=== PATIENT | male | born 1935 | race Caucasian/White ===

== ENCOUNTER 2017-06-15 08:02 | Emergency (ER) | payer MEDICARE, BC | END 2017-06-15 08:30 | disposition home or self-care (01) | LOC: SCSER 08:02 | DX: J32.9 Chronic sinusitis, unspecified (principal); H10.9 Unspecified conjunctivitis; I48.91 Unspecified atrial fibrillation; N40.0 Benign prostatic hyperplasia without lower urinary tract symptoms; E78.5 Hyperlipidemia, unspecified; Z87.891 Personal history of nicotine dependence; Z79.899 Other long term (current) drug therapy; Z79.82 Long term (current) use of aspirin | CPT/HCPCS: 99283 ==

== ENCOUNTER 2017-07-09 16:50 | Outpatient (CLI) | payer MEDICARE, BC ==
--- NOTE | 2017-07-09 20:04 | RAD ---
TWO VIEWS CHEST: 07/09/17 PROVIDED CLINICAL HISTORY: Bronchitis. FINDINGS: Comparison is made with the study dated 06/05/07. The cardiomediastinal silhouette is unchanged in appearance. Hiatal hernia is possibly present versus tortuosity of the thoracic aorta. Lungs appear free of significant opacity. No pleural fluid or pneu mothorax is evident. Degenerative changes are seen involving the thoracic spine. IMPRESSION: Cardiomegaly without evidence for an acute cardiopulmonary process. POS: [facility]
== END 2017-07-09 16:51 | disposition home or self-care (01) ==
LOC: SCSRAD 16:50
PROVIDERS: ATTEND Family Medicine
DX: J40 Bronchitis, not specified as acute or chronic (principal); I51.7 Cardiomegaly
CPT/HCPCS: 71020

== ENCOUNTER 2017-11-08 21:02 | Inpatient (IN) | payer MEDICARE, BC ==
[2017-11-08 21:53] LABS: #Eosinphils 0.1 thou/uL (0.0-0.7); #Lymphocytes 1.3 thou/uL (1.20-3.40); #Neutrophils 6.7 thou/uL (1.40-6.50); %Basophils 0.5 % (0.0-1.0); %Eosinophils 1.3 % (0.0-10.0); %Lymphocytes 14.5 % (21.0-51.0); %Monocytes 10.7 % (0.0-10.0); %Neutrophils 73.1 % (42.0-75.0); Hemoglobin 12.5 g/dL (14.0-18.0); Mean Corpuscular HGB CONC 32.3 g/dL (32.0-36.0); Mean Corpuscular Hemoglobin 33.2 pg (27.0-31.0); Platelet Count 264 thou/uL (130-400); RBC Distribution Width 13.3 % (11.5-14.5); Red Blood Cell (RBC) Count 3.76 mill/uL (4.70-6.10); White Blood Cell (WBC) Count 9.2 thou/uL (4.8-10.8)
[2017-11-08 21:58] LABS: Base Excess-Venous 6.6 mmol/L (0 (+/- 2.5)); Bicarbonate (HCO3v) 30.4 mmol/L (1.0-85.0); CO2 Tension (PvCO2) 39.6 mmHg (41.0-51.0); Calcium, Ionized 1.05 mmol/L (1.12-1.32); Hemoglobin - Calc 13.8 g/dL (12.0-18.0); O2 Tension (PvO2) 67.3 mmHg (35.0-45.0); Potassium 3.1 mmol/L (3.4-4.7); T. Carbon Dioxide 31.6 mmol/L (1.0-85.0); pH (Venous) 7.494 (7.35-7.45); vO2 Saturation-calc 94.6 % (94-98)
[2017-11-08] MEDS ORDERED: Furosemide 40 MG/4 ML VIAL ONE (22:04)
[2017-11-08] MEDS ORDERED: cefTRIAXone\\ROCEPHIN 2 GM VIAL ONE (22:04)
[2017-11-08] MEDS ORDERED: Sodium Chloride 0.9% 100 ML ONE (22:05)
[2017-11-08 22:12] LABS: ALT (SGPT) 38 U/L (8-55); AST (SGOT) 35 U/L (5-34); Albumin 3.4 g/dL (3.4-4.8); Alkaline Phosphatase 58 U/L (40-150); Anion Gap 13 mmol/L (10-20); BUN (Urea Nitrogen) 21 mg/dL (8.4-25.7); Bilirubin, Total 0.8 mg/dL (0.2-1.2); CK (CPK) 124 U/L (30-200); Calc. Creatinine Clearance 0 mL/min (70-130); Calcium 8.8 mg/dL (7.8-10.44); Carbon Dioxide 29 mmol/L (23-31); Chloride 101 mmol/L (98-107); Estimated GFR-MDRD 79; Globulin 2.5 g/dL (2.4-3.5); Glucose 129 mg/dL (83-110); Potassium 3.2 mmol/L (3.5-5.1); Protein, Total 5.9 g/dL (5.8-8.1); Sodium 140 mmol/L (136-145)
[2017-11-08 22:15] LABS: CKMB 0.8 ng/mL (0-6.6); Troponin I 0.036 ng/mL (< 0.028)
--- NOTE | 2017-11-08 22:51 | RAD ---
PORTABLE AP CHEST X-RAY 11/08/17 HISTORY: Dyspnea, shortness of breath. COMPARISON: 07/09/17. FINDINGS: There are increased interstitial and alveolar opacities in the perihilar regions bilaterally which ma y be related to infectious process and atypical pneumonia is a possibility. Asymmetric pulmonary truman a is also a possibility. The cardiac silhouette is magnified by projection but stable in size. Pulmon rajendra vasculature is within normal limits. Degenerative changes are seen in the spine. Vascular calcifi cations seen in the thoracic aorta. IMPRESSION: Bilateral perihilar interstitial and alveolar opacities which may be related to either asymmetric pul monary edema or infectious process. Atypical pneumonia could not be excluded. Followup to resolution is recommended. POS: [facility]
[2017-11-08 23:15] LABS: Bilirubin Negative (Negative); Blood, Urine Negative (Negative); Clarity CLEAR (Clear); Glucose, Urine (Dipstick) Negative (Negative); Leukocyte Negative (Negative); Nitrite Negative (Negative); Protein, Urine (Dipstick) Negative (Neg-Trace); Specific Gravity, Urine 1.008 (1.002-1.036); pH, Urine 7.5 (5.0-9.0)
[2017-11-08] MEDS ORDERED: Fentanyl 100 MCG/2 ML VIAL SLOW IVP PRN (23:52)
[2017-11-08] MEDS ORDERED: Vancomycin HCl 1 GM in Premix Bag 1 BAG IVPB SCH (23:59)
[2017-11-09] VITALS: BMI 32.8
[2017-11-09 01:32] LABS: CKMB 0.7 ng/mL (0-6.6); Troponin I 0.032 ng/mL (< 0.028)
[2017-11-09 04:34] LABS: #Basophils 0.1 thou/uL (0.0-0.2); #Eosinphils 0.1 thou/uL (0.0-0.7); #Lymphocytes 2.4 thou/uL (1.20-3.40); #Monocytes 1.1 thou/uL (0.11-0.59); #Neutrophils 6.1 thou/uL (1.40-6.50); %Basophils 0.7 % (0.0-1.0); %Eosinophils 1.1 % (0.0-10.0); %Lymphocytes 24.1 % (21.0-51.0); %Monocytes 11.7 % (0.0-10.0); %Neutrophils 62.5 % (42.0-75.0); Hemoglobin 11.9 g/dL (14.0-18.0); Mean Corpuscular HGB CONC 32.3 g/dL (32.0-36.0); Mean Corpuscular Hemoglobin 33.1 pg (27.0-31.0); Platelet Count 246 thou/uL (130-400); RBC Distribution Width 13.3 % (11.5-14.5); White Blood Cell (WBC) Count 9.8 thou/uL (4.8-10.8)
[2017-11-09 04:38] LABS: Anion Gap 9 mmol/L (10-20); BUN (Urea Nitrogen) 18 mg/dL (8.4-25.7); Calc. Creatinine Clearance 74 mL/min (70-130); Calcium 8.9 mg/dL (7.8-10.44); Carbon Dioxide 36 mmol/L (23-31); Chloride 99 mmol/L (98-107); Estimated GFR-MDRD 67; Glucose 122 mg/dL (83-110); Potassium 3.3 mmol/L (3.5-5.1); Sodium 141 mmol/L (136-145)
[2017-11-09 04:43] LABS: Troponin I 0.042 ng/mL (< 0.028)
[2017-11-09] MEDS ORDERED: Amiodarone 200 MG TAB PO SCH (09:00)
--- NOTE | 2017-11-09 09:57 | HP ---
HISTORY OF PRESENT ILLNESS: This is an 82-year-old white male with history of hypertension, hyperlip idemia, and arrhythmia who presents with shortness of breath. Patient states years ago, he had an ep isode of what he describes as congestive heart failure, treated with IV Lasix. He has been a patient of Dr. Kraus as well as Dr. Hill Franklin. He has a history of a cardiac arrhythmia. He was do ing well until approximately 4 weeks ago, he started developing some shortness of breath. He was hop ing it would resolve on its own. His normal weight is approximately 190, and over the past several w eeks, he gained up to 215 pounds. He was becoming increasing shortness of breath and he was in [facility] on Saturday 3 days ago and went to the emergency room and was treated with Lasix and potassium and sent home. He continued to have increasing shortness of breath and they decided to come home and he immediately came to the emergency room where he was in severe respiratory distress. He was immediat sammy placed on BiPAP and given 80 mg of Lasix IV. Following this, his breathing improved. He was on BiPAP for a very short period of time. This morning, he is feeling much better. He is breathing eas ier. He is walking in the hallways. PAST MEDICAL HISTORY: Includes hearing loss, hypertension, hyperlipidemia, irregular heartbeat, slee p apnea, and glaucoma. PAST SURGICAL HISTORY: Include appendectomy and cataract. In 07/06, he had lumbar laminectomy by Dr Meliton Longoria. FAMILY HISTORY: Father with colon cancer. Mother at 94 with heart disease. Sibling with lung cancer. SOCIAL HISTORY: He drinks occasional scotch. He is retired, , has 3 sons, lives with his wif e. He would like to play golf 4 times per week. He does also enjoy traveling. MEDICATIONS: Amlodipine 5 mg daily, hydrochlorothiazide 25 daily, amiodarone 200 mg daily, glaucoma eyedrops, Lipitor 80 mg daily, Zetia 10 mg daily, multivitamin daily, aspirin 81 mg daily, Avodart 0. 5 mg daily, albuterol refill, albuterol HFA p.r.n., Mobic p.r.n., Singulair 10 daily. ALLERGIES: OMEPRAZOLE causes hypotension and bradycardia. REVIEW OF SYSTEMS: As above. PHYSICAL EXAMINATION: VITAL SIGNS: Temperature on admission was 99.7, temperature now 99.3, pulse 53, respiration 20, puls e oximetry 94% on 2 liters, and blood pressure 134/58. GENERAL: No acute distress at this time. HEENT: Clear. HEART: Regular rate and rhythm with 2/6 systolic ejection murmur. LUNGS: Clear. ABDOMEN: Soft. EXTREMITIES: With 1 to 2+ edema. LABORATORY: Sodium 141, potassium 3.3, chloride 99, CO2 of 36, creatinine 1.05, BUN 18, glucose 122. Troponin I 0.032, 0.042. BNP 620. Chest x-ray with bilateral perihilar interstitial and alveolar opacities consistent with pulmonary edema, rule out infectious process, atypical pneumonia could not be ruled out. ASSESSMENT: 1. Acute respiratory distress with hypoxia. 2. Flash pulmonary edema. 3. Acute on chronic congestive heart failure, rule out non-ST elevation myocardial infarction. 4. Early bilateral pneumonia. Cultures pending. 5. Hypertension. 6. History of arrhythmia. 7. Sleep apnea. 8. Glaucoma. 9. History of renal artery stenosis. PLAN: 1. Admit. 2. Diurese with Lasix. 3. Vancomycin. Awaiting cultures. 4. Echocardiogram. 5. Consult Dr. Major. 6. Continue to follow I's and O's. 7. Patient is doing very well at this time. Anxious possibly to go home.
[2017-11-09] MEDS: Amlodipine 5 MG TAB PO SCH (10:48)
[2017-11-09] MEDS: Multivitamin W/ Minerals 1 TAB PO SCH (10:48)
[2017-11-09] MEDS: Gabapentin 300 MG CAP PO SCH ×3 (10:49→20:31)
[2017-11-09] MEDS: Fluticasone Propionate Nasal Spray 16 gm Bottle NASAL SCH (10:52)
[2017-11-09] MEDS: Hydrochlorothiazide 25 MG TAB PO SCH (10:52)
[2017-11-09] MEDS: Meloxicam 15 MG TAB PO SCH (10:53)
[2017-11-09] MEDS: Furosemide 40 MG/4 ML VIAL SLOW IVP SCH (13:07)
--- NOTE | 2017-11-09 13:19 | CON ---
DATE OF CONSULTATION: 11/09/2017 CONSULTING PHYSICIAN[place] [facility] [place] REASON FOR CONSULTATION: Acute respiratory failure related to congestive heart failure. HISTORY OF PRESENT ILLNESS: Mr. Cordero is a pleasant 82-year-old male who has seen Dr. Mosqueda in the [facility] [place] for management of his sleep apnea. He came in last night with increasing edema and shortness of breath. 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 Last ni ght, he was briefly on BiPAP. He diuresed about 2 liters and feels better this morning. PAST MEDICAL HISTORY: 1. Congestive heart failure. 2. Hypertension. 3. Hyperlipidemia. 4. Sleep apnea. 5. Paroxysmal atrial fibrillation. PAST SURGICAL HISTORY: 1. Appendectomy. 2. Cataract surgeries. 3. Lumbar laminectomy. FAMILY MEDICAL HISTORY: Remarkable for colon cancer, heart disease, and lung cancer. SOCIAL HISTORY: Occasionally drinks alcohol, does not smoke. MEDICATIONS: Amlodipine, hydrochlorothiazide, amiodarone, Lipitor, Zetia, multivitamin, aspirin, [place] dart, albuterol, Mobic, and Singulair. ALLERGIES: OMEPRAZOLE. REVIEW OF SYSTEMS: Twelve point review of systems otherwise negative. PHYSICAL EXAMINATION: VITAL SIGNS: Temperature 98.3, pulse 56, respirations 18, and O2 sat 91%. GENERAL: He is awake, alert, and in no distress. HEENT: Unremarkable. NECK: No adenopathy or JVD. LUNGS: Clear without wheezing or rhonchi at this time. CARDIOVASCULAR: S1, S2 regular. ABDOMEN: Soft, nontender. EXTREMITIES: No clubbing, cyanosis. Has trace ankle and pedal edema. LABORATORY DATA: White blood cell count 9.8, hematocrit 37, platelet count 246. Sodium 141, potassi um 3.3, chloride 99, CO2 of 36, BUN 18, creatinine 1.1, glucose 122. His chest x-ray showed pulmonar y edema last night. BNP level was 620. ASSESSMENT: 1. Acute respiratory failure related to congestive heart failure. 2. Sleep apnea, which is stable. 3. History of other medical problems listed above. PLAN: The patient can be transferred out to telemetry because he no longer needs BiPAP continuously. He will bring his CPAP from home to use at night for treatment of GERI. I reviewed the orders in e chart, agree with the diuretics and heart failure management. I doubt this is pneumonia and I woul d advocate discontinuing the antibiotics tomorrow if he remains stable. Seventy minutes of time was spent performing consultation at this time, greater than 50% spent either with the patient and/or on the patient's unit.
[2017-11-09] MEDS ORDERED: Potassium Chloride 20 MEQ TAB PO SCH (18:30)
[2017-11-09] MEDS: Montelukast Sodium 10 mg Tablet PO SCH (20:30)
[2017-11-09] MEDS: Aspirin 81 mg Enteric Coated Tablet PO SCH (20:30)
[2017-11-09] MEDS: Atorvastatin Calcium 40 MG TAB PO SCH (20:31)
[2017-11-09] MEDS: Dutasteride 0.5 MG CAP PO SCH (20:31)
[2017-11-09] MEDS: Ezetimibe 10 MG TAB PO SCH (20:31)
--- NOTE | 2017-11-09 20:48 | CON ---
DATE OF CONSULTATION: 11/09/2017 CARDIOLOGY CONSULTATION REASON FOR CONSULTATION: Congestive heart failure. PRIMARY STATE ASSESSED PROPERTIES DIRECTOR: Dr. Ganesh Kraus. HISTORY OF PRESENT ILLNESS: Mr. Cordero is a very pleasant 82-year-old gentleman. He has history of d iastolic congestive heart failure in the past as well as atrial fibrillation. The patient was visiti inna up in [place] recently became increasingly short of breath. He had to go to the emergency room, received some diuretics, it did not have a really good response. He said since then he has gotten pr ogressively more short of breath. Finally, he came to the emergency room yesterday, he has got diure tic and is feeling better. No chest pain or pressure. PAST MEDICAL HISTORY: 1. Diastolic heart failure, chronic. 2. Hypertension. 3. Hyperlipidemia. 4. Paroxysmal atrial fibrillation. 5. First-degree AV block. Long first-degree AV block noted in 12/2016 on EKG. PAST SURGICAL HISTORY: 1. Appendectomy. 2. Cataract surgery. 2. Previous cardioversion. 3. Previous Watchman placement due to GI bleeding and need for anticoagulation. FAMILY HISTORY: Colon cancer, heart disease, and lung cancer. SOCIAL HISTORY: Occasionally drinks alcohol. No smoking. MEDICATIONS: 1. Amlodipine. 2. Hydrochlorothiazide. 3. Amiodarone 200 mg a day. 4. Zetia. 5. Multivitamin. 6. Avodart. 7. Albuterol. ALLERGIES: OMEPRAZOLE. REVIEW OF SYSTEMS: Constitutional: No significant weight gain or loss. Vision: No changes. Heari ng: No changes. Pulmonary: Shortness of breath. Cardiac: Shortness of breath, no syncope. Gastr ointestinal: No nausea, vomiting, diarrhea. Skin: No rashes. Neurologic: No unilateral weakness or numbness. Psychiatric: No unusual depression or anxiety. Hematologic: No unusual bruising. Ge nitourinary: No burning with urination. PHYSICAL EXAMINATION: GENERAL: Delightful elderly gentleman resting comfortably in no distress. VITAL SIGNS: Blood pressure 147/67, pulse 55 with slight irregularity. NECK: Neck veins are normal. Carotid normal upstrokes. LUNGS: Clear anteriorly and laterally. CARDIOVASCULAR: Mildly irregular beats, bradycardic. No S3, no murmur heard. ABDOMEN: Soft, nontender. He is obese. EXTREMITIES: No clubbing or cyanosis. There is some moderate edema. LABORATORY DATA AND X-RAY FINDINGS: EKG shows atrial fibrillation with what looks like a junctional rhythm and occasionally conducted rhythm through the AV node. He is bradycardic. Echocardiogram, technically suboptimal study, but the ejection fraction estimated at 50%-55%. There is aortic stenosis, but looks likely [id number]. ASSESSMENT: 1. Congestive heart failure, diastolic, acute on chronic. 2. Atrial fibrillation, recurrent. 3. History of first-degree AV block. 4. Hypokalemic now. PLAN: 1. Stop amiodarone. 2. Continue diuretics. 3. Replete potassium. 4. Further care dictated by hospital course. Heart rate would likely gradually increase well off e amiodarone, but that will certainly take some time with a long half-life of this medicine.
[2017-11-09] MEDS ORDERED: TIMOLOL L EYE SCH (21:00)
[2017-11-09] MEDS ORDERED: DORZOLAMIDE L EYE SCH (21:00)
[2017-11-10] MEDS: Furosemide 40 MG/4 ML VIAL SLOW IVP SCH ×2 (05:45→14:27)
[2017-11-10 08:02] LABS: Anion Gap 12 mmol/L (10-20); BUN (Urea Nitrogen) 16 mg/dL (8.4-25.7); Calc. Creatinine Clearance 80 mL/min (70-130); Calcium 8.7 mg/dL (7.8-10.44); Carbon Dioxide 32 mmol/L (23-31); Chloride 101 mmol/L (98-107); Estimated GFR-MDRD 78; Glucose 94 mg/dL (83-110); Potassium 3.4 mmol/L (3.5-5.1); Sodium 142 mmol/L (136-145)
--- NOTE | 2017-11-10 08:12 | PRG ---
DATE OF SERVICE: 11/10/2017 SUBJECTIVE: The patient is feeling much better this morning. He is less short of breath. No compla ints of chest pain. Continues to diurese. OBJECTIVE: VITAL SIGNS: Temperature 98.2, pulse 60, respiration 20, pulse ox 94, blood pressure 122/62. HEART: Irregularly, irregular. LUNGS: Clear. ABDOMEN: Soft. EXTREMITIES: With no edema. LABORATORY DATA: Labs pending. BMP pending. ASSESSMENT: 1. Acute on chronic diastolic congestive heart failure. 2. Recurrent atrial fibrillation. 3. History of a first degree AV block. 4. Hypokalemia. 5. Acute respiratory distress with hypoxia. 6. Hypertension. 7. Sleep apnea. 8. History of renal artery stenosis. PLAN: 1. Continue diuresis. This morning, has another 1500 mL output. Lasix was just given. 2. Discontinue antibiotics. 3. Patient concerned about stopping the amiodarone. He has been on it for several years. 4. Echocardiogram pending. 5. Continue to follow.
--- NOTE | 2017-11-10 08:28 | PDOC.CTH ---
<Vivian Houser - Last Filed: 11/10/17 12:46> Cardiology Progress Note - Subjective Awake, sitting up in chair at bedside. No overnight events. Denies complaints of chest pain, continues to experience shortness of breath with minimal exertion , currently without oxygen. States he feels "a little better". - ROS shortness of breath - Objective Vital Signs Temp Pulse Resp BP BP Pulse Ox 11/10/17 07:25 99.0 F 63 17 152/72 H 91 L 11/10/17 04:00 98.2 F 60 20 122/62 94 L 11/09/17 20:25 98.6 F 55 L 16 132/65 92 L Weight 208 lb 1 oz 11/09/17 11/10/17 11/11/17 06:59 06:59 06:59 Intake Total 320 440 Output Total 1850 1600 Balance -1530 -1160 - Physical Examination General/Neuro: alert & oriented x3, NAD Neck: no JVD present Lungs: unlabored respirations, other: (Post BLL diminished, scattered rhonchi, clear with cough) Heart: other: (Irregularly irregular, no S3, no murmur auscultated) Abdomen: NT/ND, soft, other: (obese) Extremities: + edema B (moderate edema to BLE, less tight this am) - Telemetry Telemetry Rhythm: AFib - Labs Result Diagrams: 11/09/17 04:02 11/10/17 05:14 Troponin/CKMB CK-MB (CK-2) 0.7 ng/mL (0-6.6) 11/09/17 00:58 Troponin I 0.042 ng/mL (< 0.028) H 11/09/17 04:02 - Assessment/Plan 1.Acute on chronic diastolic HF-echo yesterday revealed EF 50%-55%. BNP decreasing, good response to IV diuresis. 2. Hypokalemia-improving, K+ 3.4 this am, continue to replace 3. AFib, persistent-rate improving off amiodarone, hx:watchman, no need for OACs , prior cardioversion 4.HTN-adequately controlled on current regimen 5.Hypercholesterolemia-continue statin, ezetimibe 6.Elevated trops-likely 2/2 demand ischemia, chest pain free <Sha Major - Last Filed: 11/10/17 14:28> Cardiology Progress Note - Objective Vital Signs Temp Pulse Pulse Pulse Resp BP BP 11/10/17 13:21 98.1 F 64 16 11/10/17 11:45 54 L 55 L 161/74 H 11/10/17 09:22 63 157/72 H 11/10/17 08:00 99.0 F 63 16 11/10/17 07:25 99.0 F 63 17 11/10/17 04:00 98.2 F 60 20 BP BP BP Pulse Ox Pulse Ox Pulse Ox 11/10/17 13:21 138/65 92 L 11/10/17 11:45 129/61 90 L 94 L 11/10/17 09:22 11/10/17 08:00 91 L 11/10/17 07:25 152/72 H 91 L 11/10/17 04:00 122/62 94 L Weight 208 lb 1 oz 11/09/17 11/10/17 11/11/17 06:59 06:59 06:59 Intake Total 320 440 Output Total 1850 1600 Balance -1530 -1160 - Labs Result Diagrams: 11/09/17 04:02 11/10/17 05:14 Troponin/CKMB CK-MB (CK-2) 0.7 ng/mL (0-6.6) 11/09/17 00:58 Troponin I 0.042 ng/mL (< 0.028) H 11/09/17 04:02 Attending Addendum - Attending Addendum Date/Time: 11/10/17 [id number] I personally evaluated the patient and discussed the management with Vivian Houser NP I agree with the History, Examination, Assessment and Plan documented above with any addition or exceptions noted below.
[2017-11-10] MEDS: Calcium Carbonate 500 MG TAB PO SCH (09:21)
[2017-11-10] MEDS: Meloxicam 15 MG TAB PO SCH (09:22)
[2017-11-10] MEDS: Fluticasone Propionate Nasal Spray 16 gm Bottle NASAL SCH (09:22)
[2017-11-10] MEDS: Amlodipine 5 MG TAB PO SCH (09:22)
[2017-11-10] MEDS: Hydrochlorothiazide 25 MG TAB PO SCH (09:22)
[2017-11-10] MEDS: Gabapentin 300 MG CAP PO SCH ×3 (09:22→20:59)
[2017-11-10] MEDS: Multivitamin W/ Minerals 1 TAB PO SCH (09:23)
--- NOTE | 2017-11-10 12:29 | RAD ---
CHEST 2 VIEWS: Date: 11/10/17 HISTORY: CHF. COMPARISON: Radiograph from 11/08/17. FINDINGS: Patchy perihilar air space opacities are similar to slightly improving. No pneumothorax. Small to moderate effusions. There is upper lumbar spine compression deformities. Heart size is enlar ged. IMPRESSION: 1. Moderate interval improvement of the perihilar air space opacities may reflect edema. Continued f ollow-up recommended. 2. Cardiomegaly with small to moderate effusions. POS: [facility]
--- NOTE | 2017-11-10 15:57 | PRG ---
DATE OF SERVICE: 11/10/2017 SUBJECTIVE: Mr. Cordero is awake and alert. He has no complaints. PHYSICAL EXAMINATION: VITAL SIGNS: Temperature 98.0, pulse 60, blood pressure 157/72, O2 sat about 94% on room air. HEENT: Unremarkable. NECK: No JVD. LUNGS: Clear without wheezing or rhonchi. CARDIAC: S1 and S2 regular. ABDOMEN: Soft. EXTREMITIES: He has 2+ edema in his ankles. IMAGING DATA: His chest x-ray demonstrates bilateral perihilar edema. ASSESSMENT: 1. Congestive heart failure - probably primary diastolic dysfunction. 2. Obstructive sleep apnea. PLAN: Continue diuresis. In all likelihood, he can be discharged soon. Dr. Mosqueda will assume care tomorrow.
[2017-11-10] MEDS: Montelukast Sodium 10 mg Tablet PO SCH (20:58)
[2017-11-10] MEDS: Ezetimibe 10 MG TAB PO SCH (20:58)
[2017-11-10] MEDS: Atorvastatin Calcium 40 MG TAB PO SCH (20:58)
[2017-11-10] MEDS: Aspirin 81 mg Enteric Coated Tablet PO SCH (20:59)
[2017-11-10] MEDS: Dutasteride 0.5 MG CAP PO SCH (20:59)
[2017-11-11] MEDS: Furosemide 40 MG/4 ML VIAL SLOW IVP SCH (05:49)
[2017-11-11 07:41] VITALS: BP 128/69; TEMP 98.2
--- NOTE | 2017-11-11 08:12 | PRG ---
DATE OF SERVICE: 11/11/2017 Mr. Cordero is doing well. He is ready to go home. He is having no further shortness of breath. He h as diuresed approximately 10 pounds of fluid. PHYSICAL EXAMINATION: VITAL SIGNS: Temperature 98.5, pulse 52, BP 130/63. LUNGS: Clear. HEART: Reveals no murmur, appears to be regular rate and rhythm. LABORATORY: Sodium 142, potassium 3.4, chloride 101, CO2 32. IMPRESSION: 1. Exacerbation of congestive heart failure. 2. History of atrial fibrillation, now off amiodarone. PLAN: I believe the patient can be safely discharged today. Further cardiac recommendations will be made by Dr. Kraus. He can follow up with myself and Dr. Kraus in 1 week.
--- NOTE | 2017-11-11 08:20 | PRG ---
DATE OF SERVICE: 11/11/2017 Mr. Cordero is in atrial fibrillation today. I have checked his monitor report. He is stable to go home. I will leave the decision to restart am iodarone versus starting other medications per Cardiology who will be following him. I will see him back in 1 week.
--- NOTE | 2017-11-11 09:33 | PRG ---
DATE OF SERVICE: 11/11/2017 SUBJECTIVE: Mr. Cordero is doing much better today. Much less shortness of breath. He states after r eceiving IV Lasix while in the emergency room, his symptoms markedly improved. PHYSICAL EXAMINATION: VITAL SIGNS: Blood pressure 120/69, pulse 50, temperature 98.2. LUNGS: Clear to auscultation. HEART: Regular rate and rhythm. ABDOMEN: Soft, nontender, nondistended. EXTREMITIES: No edema. IMPRESSION: 1. Acute diastolic heart failure. 2. Atrial fibrillation. 3. Coronary artery disease. RECOMMENDATIONS: Mr. Cordero is currently doing well. His blood pressure and heart rate are stable. His symptoms have markedly improved. We will stop his amiodarone. Continue p.o. Lasix and potassium at home. Plan is to follow with Mr. Cordero in 1 week.
[2017-11-11] MEDS: Multivitamin W/ Minerals 1 TAB PO SCH (09:47)
[2017-11-11] MEDS: Meloxicam 15 MG TAB PO SCH (09:47)
[2017-11-11] MEDS: Hydrochlorothiazide 25 MG TAB PO SCH (09:47)
[2017-11-11] MEDS: Calcium Carbonate 500 MG TAB PO SCH (09:48)
[2017-11-11] MEDS: Fluticasone Propionate Nasal Spray 16 gm Bottle NASAL SCH (09:48)
[2017-11-11] MEDS: Amlodipine 5 MG TAB PO SCH (09:48)
[2017-11-11] MEDS: Gabapentin 300 MG CAP PO SCH (09:48)
== END 2017-11-11 10:30 | disposition home or self-care (01) | DRG 291 ==
LOC: ERS 21:02 → IMCU/EMU 22:21 → 2NO 11-09 15:19
PROVIDERS: ADMIT Family Medicine; ATTEND Family Medicine
DX: I11.0 Hypertensive heart disease with heart failure (principal); J96.01 Acute respiratory failure with hypoxia; J18.9 Pneumonia, unspecified organism; E78.5 Hyperlipidemia, unspecified; I10 Essential (primary) hypertension; H91.90 Unspecified hearing loss, unspecified ear; H40.9 Unspecified glaucoma; I50.33 Acute on chronic diastolic (congestive) heart failure; I48.0 Paroxysmal atrial fibrillation; E87.6 Hypokalemia; E78.00 Pure hypercholesterolemia, unspecified; I70.1 Atherosclerosis of renal artery; G47.33 Obstructive sleep apnea (adult) (pediatric); I25.10 Atherosclerotic heart disease of native coronary artery without angina pectoris
CPT/HCPCS: 36415; 71045; 71046; 80048; 80053; 81003; 82330; 82553; 82803; 83605; 83880; 84484; 85025; 87040; 87086; 93005; 93306; 93798; 94660; 96365; 96375; A4216; J0696; J1940; J7050

== ENCOUNTER 2018-02-25 17:10 | Outpatient (CLI) | payer MEDICARE, BC ==
--- NOTE | 2018-02-25 18:11 | RAD ---
THREE VIEWS LEFT KNEE: 02/25/18 INDICATION: Fall in a parking lot landing on left knee three weeks ago with persistent left knee pain. FINDINGS: There is moderate degenerative arthrosis of the left knee. No definite acute fracture or subluxation is evident. There is soft tissue swelling overlying the anterior aspect of the left knee. There are v ascular calcifications seen within posterior soft tissues. IMPRESSION: 1. Moderate osteoarthrosis of the left knee. 2. Soft tissue swelling of the anterior left knee. POS: [facility]
== END 2018-02-25 17:11 | disposition home or self-care (01) ==
LOC: SCSRAD 17:10
PROVIDERS: ATTEND Family Medicine
DX: M25.562 Pain in left knee (principal); M17.12 Unilateral primary osteoarthritis, left knee; M79.89 Other specified soft tissue disorders

== ENCOUNTER 2019-10-22 12:15 | Outpatient (CLI) | payer MEDICARE, BC ==
[2019-10-22] MEDS ORDERED: Iopamidol-370 76% 500 ML 1 ML ONE (13:24)
--- NOTE | 2019-10-22 13:56 | CT ---
CT ANGIOGRAM NECK WITH 3D RENDERING: Date: 10/22/2019 HISTORY: Double vision. Third nerve palsy. FINDINGS: There is a generally dominant left vertebral artery with a small caliber right vertebral artery which primarily feeds the right PICA artery with a very small connection to the basilar artery. There are some atherosclerotic calcific plaques within the right and left carotid artery bifurcations with less than 50% stenosis using NASCET criteria. There is evidence for a left thyroid gland nodule up to sis roximately 2.0 x 3.0 cm. There is no evidence for carotid artery cavernous sinus fistula. No evidence for supraorbital arterial or venous enlargement. There is some sinus mucosal disease in the posterio r ethmoid sinuses and within the sphenoid sinus. No evidence for intracranial aneurysm involving the visualized inferior portion of the brain. The origins of the right and left common carotid arteries a nd vertebral arteries appear unremarkable. IMPRESSION: 1. No evidence for carotid cavernous sinus fistula. 2. Left thyroid lobe nodule. 3. Dominant left vertebral artery with a smaller caliber right vertebral artery primarily feeding th e right PICA. 4. Sinus mucosal disease. 5. No significant stenosis. Findings discussed with Dr. Maldonado at 1345 hours. CODE CR.
== END 2019-10-22 12:16 | disposition home or self-care (01) ==
LOC: BICCT 12:15
PROVIDERS: ATTEND Ophthalmology
DX: I67.1 Cerebral aneurysm, nonruptured (principal); H49.01 Third [oculomotor] nerve palsy, right eye; E04.1 Nontoxic single thyroid nodule; J32.9 Chronic sinusitis, unspecified
CPT/HCPCS: 36415; 70498; 85025; 85652; 86140; Q9967

== ENCOUNTER 2019-10-28 08:46 | Outpatient (CLI) | payer MEDICARE, BC ==
--- NOTE | 2019-10-28 13:49 | MRI ---
MRI BRAIN WITH AND WITHOUT CONTRAST: 10/28/19 Cranial nerve protocol was followed. INDICATIONS: Right third nerve palsy. There are no comparison studies. FINDINGS: The ventricles have normal size and position. There is mild cortical atrophy with proportionate ventr iculomegaly. Mild chronic ischemic white matter changes are seen in the periventricular white matter of both cerebral hemispheres. No evidence of restricted diffusion. 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 This sellar mass measures 2.0 cm width x 1.2 cm AP dimension in the coronal plane. There is bilateral cavernous sinus extension slightly more prominent on the right. There is suprasellar extension with abutment of the optic chiasm. The cavernous sinus extension on the right would explain the right third nerve palsy with displacement of the right thir d nerve within the cavernous sinus. The third cranial nerves otherwise appear unremarkable on their precavernous portions. This mass is relatively homogeneous without significant enhancement. No other parenchymal enhancement identified. Intracranial internal carotid arteries and cerebral arteries show expected flow voids. Dural venous s inuses are patent. Paranasal sinuses and mastoids appear clear. IMPRESSION: 1. 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 Dimensions are given above. A pituitary ma croadenoma would be the primary consideration. Extension into cavernous sinuses is seen and the right cavernous sinus extension appears to displace the right third nerve. 2. There is mild cortical volume loss and mild chronic ischemic changes consistent with age. POS: [facility]
== END 2019-10-28 08:47 | disposition home or self-care (01) ==
LOC: SCSMRI 08:46
PROVIDERS: ATTEND Ophthalmology
DX: H49.01 Third [oculomotor] nerve palsy, right eye (principal); R22.0 Localized swelling, mass and lump, head
CPT/HCPCS: 70553

== ENCOUNTER 2020-01-01 11:42 | Outpatient (CLI) | payer MEDICARE, BC ==
[~2020-01-01 11:42] MED LIST: Magnevist 469MG/ML 20 ML VIAL ONE
--- NOTE | 2020-01-01 14:19 | MRI ---
Exam: Brain MRI with and without contrast HISTORY: Evaluate pituitary tumor. COMPARISON: 10/28/2019 FINDINGS: Brain MRI: Hemorrhage: No parenchymal hemorrhage or extra-axial hematoma Calvarium: Appropriate T1 marrow signal intensity Midline brain parenchyma: No acute abnormality with regards midline brain parenchymal structures. Cerebrum:No parenchymal mass, mass effect or midline shift. Age-appropriate atrophy. Cortical turner-wh ite white matter differentiation is preserved. Stable T2 and FLAIR white matter hyperintensities due to chronic small vessel ischemic change Ventricles: No evidence of hydrocephalus. Sinuses and mastoid air cells: Minimal mucosal thickening of the ethmoid air cells Diffusion: Central arterial flow is maintained. Absent restricted diffusion. Postcontrast images: No pathologic enhancement of the brain parenchyma. Pituitary MRI: Previously noted sellar and suprasellar mass is not appreciated on the current exam. Currently, the s rajwinder has a concave appearance. Findings compatible with a partially empty sella. There is no mass effect upon the optic chiasm and prechiasmatic optic nerve. Pituitary stalk is midline. There is no evidence of a hypointense mass with delayed enhancement to suggest a microadenoma. There is stable circumferential enhancement involving the residual pituitary tissue. Previously noted extension into the right cavernous sinus is currently not appreciated. IMPRESSION: 1. No significant change with regards to the brain parenchyma 2. Essentially there appears to be resolution of previously noted sellar mass. No evidence of a micro adenoma or macroadenoma. Previously noted mass effect upon the right third cranial nerve is no longer evident. Transcribed Date/Time: 01/01/2020 2:31 PM
== END 2020-01-01 11:43 | disposition home or self-care (01) ==
LOC: MRI 11:42
PROVIDERS: ATTEND Neurological Surgery
DX: D35.2 Benign neoplasm of pituitary gland (principal)
CPT/HCPCS: 70553; 82565; A9579

== ENCOUNTER 2020-02-17 10:53 | Outpatient (CLI) | payer MEDICARE, BC ==
--- NOTE | 2020-02-17 11:17 | RAD ---
EXAM: CHEST TWO VIEWS 02/17/2020 11:15 AM HISTORY: Shortness of breath; history of CHF and atrial fibrillation COMPARISON: November 10, 2017 FINDINGS: Lungs: No acute airspace consolidation. Heart: Stable mild cardiomegaly Pulmonary Vessels: Normal. Costophrenic Angles: Clear. Pneumothorax: None. Osseous Structures: Intact. Additional Findings: None. IMPRESSION: No significant acute intrathoracic disease.
== END 2020-02-17 10:54 | disposition home or self-care (01) ==
LOC: SCSRAD 10:53
PROVIDERS: ATTEND Family Medicine
DX: I50.42 Chronic combined systolic (congestive) and diastolic (congestive) heart failure (principal); I48.91 Unspecified atrial fibrillation
CPT/HCPCS: 36415; 71046; 80053; 83880; 85025

== ENCOUNTER 2020-09-23 09:52 | Inpatient (IN) | payer MEDICARE, BC ==
[2020-09-23] MEDS ORDERED: Atropine Sulfate 1 mg/10 ml Syringe ONE ×3 (10:04→13:09)
[2020-09-23 10:19] LABS: #Basophils 0.1 thou/uL (0.0-0.2); #Eosinphils 0.2 thou/uL (0.0-0.7); #Lymphocytes 3.1 thou/uL (1.20-3.40); #Monocytes 0.9 thou/uL (0.11-0.59); #Neutrophils 5.9 thou/uL (1.40-6.50); %Basophils 0.6 % (0.0-1.0); %Eosinophils 2.1 % (0.0-10.0); %Lymphocytes 30.2 % (21.0-51.0); %Monocytes 8.6 % (0.0-10.0); %Neutrophils 58.5 % (42.0-75.0); Hemoglobin 14.7 g/dL (14.0-18.0); Mean Corpuscular HGB CONC 32.8 g/dL (32.0-36.0); Mean Corpuscular Hemoglobin 33.7 pg (27.0-31.0); Mean Platelet Volume 7.8 fL (7.4-10.4); Platelet Count 219 thou/uL (130-400); RBC Distribution Width 12.3 % (11.5-14.5); Red Blood Cell (RBC) Count 4.37 mill/uL (4.70-6.10); White Blood Cell (WBC) Count 10.1 thou/uL (4.8-10.8)
[2020-09-23 10:43] LABS: ALT (SGPT) 18 U/L (8-55); AST (SGOT) 28 U/L (5-34); Albumin 4.4 g/dL (3.4-4.8); Alkaline Phosphatase 52 U/L (40-110); Anion Gap 14 mmol/L (10-20); BUN (Urea Nitrogen) 25 mg/dL (8.4-25.7); Bilirubin, Total 0.5 mg/dL (0.2-1.2); Calc. Creatinine Clearance 0 mL/min (70-130); Calcium 9.3 mg/dL (7.8-10.44); Carbon Dioxide 30 mmol/L (23-31); Chloride 101 mmol/L (98-107); Globulin 2.8 g/dL (2.4-3.5); Glucose 79 mg/dL (83-110); Potassium 3.3 mmol/L (3.5-5.1); Protein, Total 7.2 g/dL (5.8-8.1); Sodium 142 mmol/L (136-145)
[2020-09-23] MEDS ORDERED: Iopamidol 370 76% 50 ML VIAL FS ONE (11:47)
[2020-09-23] MEDS ORDERED: Atropine Sulfate 1 mg/1 ml Vial IVP PRN (13:59)
[2020-09-23] MEDS ORDERED: DOPamine 400 MG/D5W 250 ML 250 ML ONE (14:06)
[2020-09-23] MEDS ORDERED: CEFAZOLIN 1 GM VIAL ONE (14:38)
[2020-09-23] MEDS ORDERED: Gentamicin 80 MG/2 ML VIAL ONE (14:38)
[2020-09-23] MEDS ORDERED: Lidocaine 1% (PF) 30 ML VIAL ONE ×2 (14:38→15:51)
[2020-09-23 14:39] LABS: Magnesium 2.3 mg/dL (1.6-2.6); Phosphorus 3.7 mg/dL (2.3-4.7)
[2020-09-23 15:29] LABS: Troponin I Less than 0.010 ng/mL (< 0.028)
[2020-09-23] MEDS ORDERED: Midazolam HCl 2 mg/2 ml Vial ONE (15:49)
[2020-09-23 15:59] LABS: SARS-CoV-2 NAA Rapid Test DETECTED (NotDetected)
[2020-09-23] MEDS ORDERED: Acetaminophen/Codeine 30-300mg Tablet PO PRN (16:26)
[2020-09-23] MEDS ORDERED: Gabapentin 300 MG CAP PO PRN (18:50)
[2020-09-23 19:11] LABS: Troponin I 0.038 ng/mL (< 0.028)
[2020-09-23] MEDS ORDERED: Loratadine 10 MG TAB PO PRN (19:17)
[2020-09-23] MEDS ORDERED: Fluticasone Propionate Nasal Spray 16 gm Bottle NASAL PRN (19:26)
[2020-09-23 20:06] VITALS: BMI 29.1
[2020-09-23] MEDS: Atorvastatin Calcium 40 MG TAB PO SCH (21:00)
[2020-09-23] MEDS: DorzolamidE/Timolol 2%/0.5% Ophth Soln 10 ml Bottle L EYE SCH (21:01)
[2020-09-23] MEDS: Montelukast Sodium 10 mg Tablet PO SCH (21:01)
[2020-09-23] MEDS: Ezetimibe 10 MG TAB PO SCH (21:01)
[2020-09-23] MEDS: predniSONE 5 MG TAB PO SCH (21:01)
[2020-09-23] MEDS: Melatonin 3 MG TAB PO PRN (21:02)
[2020-09-24 04:53] LABS: #Basophils 0.1 thou/uL (0.0-0.2); #Eosinphils 0.3 thou/uL (0.0-0.7); #Lymphocytes 3.7 thou/uL (1.20-3.40); #Monocytes 0.9 thou/uL (0.11-0.59); #Neutrophils 5.9 thou/uL (1.40-6.50); %Basophils 0.8 % (0.0-1.0); %Eosinophils 2.8 % (0.0-10.0); %Lymphocytes 34.2 % (21.0-51.0); %Monocytes 8.2 % (0.0-10.0); %Neutrophils 54.1 % (42.0-75.0); Mean Corpuscular HGB CONC 33.4 g/dL (32.0-36.0); Mean Corpuscular Hemoglobin 34.6 pg (27.0-31.0); Mean Platelet Volume 7.8 fL (7.4-10.4); Platelet Count 200 thou/uL (130-400); RBC Distribution Width 12.3 % (11.5-14.5); Red Blood Cell (RBC) Count 4.04 mill/uL (4.70-6.10); White Blood Cell (WBC) Count 10.9 thou/uL (4.8-10.8)
[2020-09-24 05:15] LABS: Anion Gap 15 mmol/L (10-20); BUN (Urea Nitrogen) 19 mg/dL (8.4-25.7); Calc. Creatinine Clearance 75 mL/min (70-130); Calcium 8.9 mg/dL (7.8-10.44); Carbon Dioxide 27 mmol/L (23-31); Chloride 101 mmol/L (98-107); Glucose 85 mg/dL (83-110); Sodium 140 mmol/L (136-145)
[2020-09-24] MEDS ORDERED: CALCIUM MAGNESIUM ZINC PO SCH (09:00)
[2020-09-24] MEDS: Multivitamin W/ Minerals 1 TAB PO SCH (09:04)
[2020-09-24] MEDS: Potassium Bicarbonate/Cit Ac 20 MEQ TAB PO SCH (09:05)
[2020-09-24] MEDS: Finasteride 5 MG TAB PO SCH (09:05)
[2020-09-24] MEDS: predniSONE 5 MG TAB PO SCH ×2 (09:05→20:55)
[2020-09-24] MEDS: Amlodipine 5 MG TAB PO SCH (09:05)
[2020-09-24] MEDS: Hydrochlorothiazide 25 MG TAB PO SCH (09:05)
[2020-09-24] MEDS: Furosemide 20 MG TAB PO SCH (09:05)
[2020-09-24] MEDS: Potassium Chloride 20 MEQ TAB PO SCH ×2 (09:06→11:17)
[2020-09-24] MEDS: DorzolamidE/Timolol 2%/0.5% Ophth Soln 10 ml Bottle L EYE SCH ×2 (09:06→20:55)
[2020-09-24] MEDS ORDERED: Simethicone Chewable 80 MG TAB PO PRN (10:50)
[2020-09-24] MEDS: Montelukast Sodium 10 mg Tablet PO SCH (20:55)
[2020-09-24] MEDS: Atorvastatin Calcium 40 MG TAB PO SCH (20:55)
[2020-09-24] MEDS: Melatonin 3 MG TAB PO PRN (20:55)
[2020-09-24] MEDS: Ezetimibe 10 MG TAB PO SCH (20:56)
[2020-09-25 11:08] VITALS: BP 144/77; TEMP 98.1
[2020-09-25] MEDS: Hydrochlorothiazide 25 MG TAB PO SCH (11:09)
[2020-09-25] MEDS: Multivitamin W/ Minerals 1 TAB PO SCH (11:09)
[2020-09-25] MEDS: predniSONE 5 MG TAB PO SCH (11:09)
[2020-09-25] MEDS: Amlodipine 5 MG TAB PO SCH (11:10)
[2020-09-25] MEDS: Potassium Bicarbonate/Cit Ac 20 MEQ TAB PO SCH (11:10)
[2020-09-25] MEDS: Furosemide 20 MG TAB PO SCH (11:10)
[2020-09-25] MEDS: Finasteride 5 MG TAB PO SCH (11:10)
[2020-09-25] MEDS: DorzolamidE/Timolol 2%/0.5% Ophth Soln 10 ml Bottle L EYE SCH (11:11)
[2020-09-25] MEDS ORDERED: Regadenoson 0.4 MG/5 ML SYRINGE ONE (11:39)
[2020-09-25] MEDS ORDERED: Aspirin 81 mg Enteric Coated Tablet PO SCH (11:45)
[2020-09-25 11:51] LABS: #Basophils 0.1 thou/uL (0.0-0.2); #Eosinphils 0.2 thou/uL (0.0-0.7); #Lymphocytes 3.9 thou/uL (1.20-3.40); #Monocytes 0.9 thou/uL (0.11-0.59); #Neutrophils 6.5 thou/uL (1.40-6.50); %Basophils 0.6 % (0.0-1.0); %Eosinophils 1.9 % (0.0-10.0); %Lymphocytes 33.4 % (21.0-51.0); %Monocytes 8.1 % (0.0-10.0); %Neutrophils 56.1 % (42.0-75.0); Hemoglobin 14.7 g/dL (14.0-18.0); Mean Corpuscular HGB CONC 33.9 g/dL (32.0-36.0); Mean Corpuscular Hemoglobin 35.2 pg (27.0-31.0); Mean Platelet Volume 7.9 fL (7.4-10.4); Platelet Count 196 thou/uL (130-400); RBC Distribution Width 12.4 % (11.5-14.5); Red Blood Cell (RBC) Count 4.18 mill/uL (4.70-6.10); White Blood Cell (WBC) Count 11.6 thou/uL (4.8-10.8)
[2020-09-25 12:07] LABS: Anion Gap 15 mmol/L (10-20); BUN (Urea Nitrogen) 19 mg/dL (8.4-25.7); Calc. Creatinine Clearance 71 mL/min (70-130); Calcium 9.1 mg/dL (7.8-10.44); Carbon Dioxide 27 mmol/L (23-31); Chloride 105 mmol/L (98-107); Glucose 81 mg/dL (83-110); Potassium 3.7 mmol/L (3.5-5.1); Sodium 143 mmol/L (136-145)
== END 2020-09-25 13:15 | disposition home or self-care (01) | DRG 243 ==
LOC: ERS 09:52 → SDC 15:34 → 2NO 17:18
PROVIDERS: ADMIT Internal Medicine Cardiovascular Disease; ATTEND Internal Medicine
PROC: 0JH606Z Insertion of Pacemaker, Dual Chamber into Chest Subcutaneous Tissue and Fascia, Open Approach (ICD-10-PCS; principal; 2020-09-23)
PROC: 02HK3JZ Insertion of Pacemaker Lead into Right Ventricle, Percutaneous Approach (ICD-10-PCS; 2020-09-23)
PROC: 02H63JZ Insertion of Pacemaker Lead into Right Atrium, Percutaneous Approach (ICD-10-PCS; 2020-09-23)
DX: R00.1 Bradycardia, unspecified (principal); I50.22 Chronic systolic (congestive) heart failure; Z20.822 Contact with and (suspected) exposure to COVID-19; R07.89 Other chest pain; I48.21 Permanent atrial fibrillation; H40.9 Unspecified glaucoma; N40.0 Benign prostatic hyperplasia without lower urinary tract symptoms; I11.0 Hypertensive heart disease with heart failure; E78.5 Hyperlipidemia, unspecified; E78.00 Pure hypercholesterolemia, unspecified; G47.00 Insomnia, unspecified; E87.6 Hypokalemia; I08.0 Rheumatic disorders of both mitral and aortic valves; Z88.8 Allergy status to other drugs, medicaments and biological substances; Z90.49 Acquired absence of other specified parts of digestive tract; Z87.891 Personal history of nicotine dependence; Z79.899 Other long term (current) drug therapy
CPT/HCPCS: 0240U; 33207; 36005; 36415; 71045; 75820; 78452; 80048; 80053; 83735; 83880; 84100; 84484; 85025; 93005; 93017; 93306; 93798; 96365; 96375; 96376; 99152; 99153; A9500; C1785; C1898; J0461; J0690; J1265; J1580; J2001; J2250; J2785; J7512; Q9967

== ENCOUNTER 2021-08-15 13:00 | Inpatient (IN) | payer MEDICARE, BC ==
[2021-08-15 13:42] LABS: #Basophils 0.1 thou/uL (0.0-0.2); #Eosinphils 0.2 thou/uL (0.0-0.7); #Lymphocytes 3.1 thou/uL (1.20-3.40); #Monocytes 0.5 thou/uL (0.11-0.59); #Neutrophils 6.1 thou/uL (1.40-6.50); %Basophils 0.6 % (0.0-1.0); %Eosinophils 1.7 % (0.0-10.0); %Lymphocytes 31.8 % (21.0-51.0); %Monocytes 4.6 % (0.0-10.0); %Neutrophils 61.4 % (42.0-75.0); Hemoglobin 14.1 g/dL (14.0-18.0); Mean Corpuscular HGB CONC 33.7 g/dL (32.0-36.0); Mean Corpuscular Hemoglobin 34.9 pg (27.0-31.0); Mean Platelet Volume 7.5 fL (7.4-10.4); Platelet Count 186 thou/uL (130-400); RBC Distribution Width 13.1 % (11.5-14.5); Red Blood Cell (RBC) Count 4.03 mill/uL (4.70-6.10); White Blood Cell (WBC) Count 9.9 thou/uL (4.8-10.8)
[2021-08-15] MEDS ORDERED: Aspirin Chewable 81 MG TAB ONE (13:50)
[2021-08-15 14:28] LABS: Calcium 8.9 mg/dL (7.8-10.44); Chloride 101 mmol/L (98-107); Potassium 4.5 mmol/L (3.5-5.1); Sodium 140 mmol/L (136-145)
[2021-08-15 14:29] LABS: Globulin 2.6 g/dL (2.4-3.5); Glucose 156 mg/dL (83-110); Protein, Total 6.6 g/dL (5.8-8.1)
[2021-08-15 14:31] LABS: Anion Gap 18 mmol/L (10-20); Bilirubin, Total 0.5 mg/dL (0.2-1.2); Carbon Dioxide 26 mmol/L (23-31)
[2021-08-15 14:32] LABS: Alkaline Phosphatase 48 U/L (40-110); Calc. Creatinine Clearance 0 mL/min (70-130)
[2021-08-15 14:33] LABS: BUN (Urea Nitrogen) 20 mg/dL (8.4-25.7)
[2021-08-15 14:34] LABS: AST (SGOT) 36 U/L (5-34)
[2021-08-15 14:35] LABS: ALT (SGPT) 23 U/L (8-55); Lipase 85 U/L (8-78)
[2021-08-15] MEDS ORDERED: Ondansetron ODT 4 MG TAB PO PRN (17:31)
[2021-08-15] MEDS ORDERED: Acetaminophen 325 MG TAB PO PRN (17:31)
[2021-08-15] MEDS ORDERED: Nitroglycerin 0.4 MG TAB (25 Tab Bottle) SL PRN (17:32)
[2021-08-15 18:10] LABS: Troponin I Less than 0.010 ng/mL (< 0.028)
[2021-08-15 18:32] VITALS: BMI 29.7
[2021-08-15 20:17] LABS: Troponin I Less than 0.010 ng/mL (< 0.028)
[2021-08-15] MEDS: Atorvastatin Calcium 40 MG TAB PO SCH (22:16)
[2021-08-15] MEDS: Aspirin 81 mg Enteric Coated Tablet PO SCH (22:17)
[2021-08-16] MEDS ORDERED: Metoprolol Tartrate 25 MG TAB PO SCH (08:00)
[2021-08-16 08:44] LABS: Troponin I Less than 0.010 ng/mL (< 0.028)
[2021-08-16] MEDS: Finasteride 5 MG TAB PO SCH (09:49)
[2021-08-16 12:47] LABS: SARS-CoV-2 PCR by NAA Not Detected (NotDetected)
[2021-08-16] MEDS ORDERED: Loratadine 10 MG TAB PO PRN (17:49)
[2021-08-16] MEDS ORDERED: Fluticasone Propionate Nasal Spray 16 gm Bottle NASAL PRN (17:53)
[2021-08-16] MEDS ORDERED: Docusate 100 MG CAP PO SCH (18:00)
[2021-08-16] MEDS ORDERED: Polyethylene Glycol 3350 17 GM Packet PO SCH (18:00)
[2021-08-16 18:08] LABS: Anion Gap 13 mmol/L (10-20); BUN (Urea Nitrogen) 23 mg/dL (8.4-25.7); Calc. Creatinine Clearance 57 mL/min (70-130); Calcium 8.7 mg/dL (7.8-10.44); Carbon Dioxide 29 mmol/L (23-31); Chloride 102 mmol/L (98-107); Glucose 173 mg/dL (83-110); Potassium 3.8 mmol/L (3.5-5.1); Sodium 140 mmol/L (136-145)
[2021-08-16] MEDS: Metoprolol Tartrate 25 MG TAB PO SCH (20:40)
[2021-08-16] MEDS: Atorvastatin Calcium 40 MG TAB PO SCH (20:40)
[2021-08-16] MEDS: Aspirin 81 mg Enteric Coated Tablet PO SCH (20:40)
[2021-08-16] MEDS: predniSONE 5 MG TAB PO SCH (20:41)
[2021-08-16] MEDS: DorzolamidE/Timolol 2%/0.5% Ophth Soln 10 ml Bottle EA EYE SCH (20:45)
[2021-08-16] MEDS ORDERED: Ezetimibe 10 MG TAB PO SCH (21:00)
[2021-08-16] MEDS ORDERED: Montelukast Sodium 10 mg Tablet PO SCH (21:00)
[2021-08-17] MEDS: Finasteride 5 MG TAB PO SCH (08:05)
[2021-08-17] MEDS: predniSONE 5 MG TAB PO SCH (08:06)
[2021-08-17] MEDS: DorzolamidE/Timolol 2%/0.5% Ophth Soln 10 ml Bottle EA EYE SCH (08:08)
[2021-08-17] MEDS ORDERED: ADENOSINE 60 MG/20 ML VIAL ONE (08:54)
[2021-08-17] MEDS ORDERED: Docusate 100 MG CAP PO SCH (09:00)
[2021-08-17] MEDS ORDERED: Multivit, Therapeutic 1 TAB PO SCH (09:00)
[2021-08-17] MEDS ORDERED: Polyethylene Glycol 3350 17 GM Packet PO SCH (09:00)
[2021-08-17] MEDS ORDERED: Amlodipine 5 MG TAB PO SCH (09:00)
[2021-08-17] MEDS ORDERED: CALCIUM MAGNESIUM ZINC PO SCH (09:00)
[2021-08-17 11:28] VITALS: TEMP 97.6
[2021-08-17] MEDS: Metoprolol Tartrate 25 MG TAB PO SCH (12:33)
[2021-08-17 15:29] VITALS: BP 133/73
== END 2021-08-17 17:00 | disposition home or self-care (01) | DRG 313 ==
LOC: ERS 13:00 → 2NO 16:28 → OBSVTOIN 08-17 13:04
PROVIDERS: ADMIT Internal Medicine; ATTEND Hospitalist
DX: R07.89 Other chest pain (principal); I48.20 Chronic atrial fibrillation, unspecified; E87.6 Hypokalemia; Z20.822 Contact with and (suspected) exposure to COVID-19; R00.1 Bradycardia, unspecified; N40.0 Benign prostatic hyperplasia without lower urinary tract symptoms; E78.5 Hyperlipidemia, unspecified; G47.33 Obstructive sleep apnea (adult) (pediatric); I12.9 Hypertensive chronic kidney disease with stage 1 through stage 4 chronic kidney disease, or unspecified chronic kidney disease; N18.9 Chronic kidney disease, unspecified; I25.10 Atherosclerotic heart disease of native coronary artery without angina pectoris; Z95.0 Presence of cardiac pacemaker; Z88.8 Allergy status to other drugs, medicaments and biological substances; Z79.82 Long term (current) use of aspirin; Z79.899 Other long term (current) drug therapy; Z90.49 Acquired absence of other specified parts of digestive tract; Z98.49 Cataract extraction status, unspecified eye; Z85.828 Personal history of other malignant neoplasm of skin; Z87.891 Personal history of nicotine dependence
CPT/HCPCS: 36415; 71045; 78452; 80048; 80053; 83690; 83880; 84484; 85025; 93005; 93010; 93017; A9500; G0378; J0153; J7512; U0003; U0005

== ENCOUNTER 2023-05-16 09:04 | Outpatient (CLI) | payer MEDICARE, BC | END 2023-05-16 09:05 | disposition home or self-care (01) | LOC: MRI 09:04 | PROVIDERS: ATTEND Neurological Surgery | DX: D35.2 Benign neoplasm of pituitary gland (principal) | CPT/HCPCS: 70553 ==

== ENCOUNTER 2023-09-13 09:21 | Outpatient (CLI) | payer MEDICARE, BC ==
[2023-09-13 10:12] LABS: #Basophils 0.1 10x3/uL (0.0-0.2); #Eosinphils 0.1 10x3/uL (0.0-0.5); #Monocytes 0.6 10x3/uL (0.0-1.1); %Basophils 0.6 % (0.0-2.0); %Eosinophils 1.1 % (0.0-6.0); %Lymphocytes 21.6 % (18.0-47.0); %Monocytes 4.4 % (0.0-10.0); %Neutrophils 71.8 % (40.0-75.0); Hematocrit 46.2 % (38.8-50.0); Hemoglobin 15.5 g/dL (13.5-17.5); Mean Corpuscular HGB CONC 33.5 g/dL (32.0-36.0); Mean Corpuscular Hemoglobin 33.4 pg (27.0-33.0); Mean Corpuscular Volume 99.6 fl (81.2-95.1); Mean Platelet Volume 9.8 fl (7.4-10.4); Platelet Count 219 10x3/uL (150-450); RBC Distribution Width 13.7 % (11.5-14.5); Red Blood Cell (RBC) Count 4.64 10x6/uL (4.32-5.72); White Blood Cell (WBC) Count 12.6 10x3/uL (3.5-10.5)
[2023-09-13 10:56] LABS: ALT (SGPT) 34 U/L (8-55); AST (SGOT) 38 U/L (5-34); Albumin 4.5 g/dL (3.4-4.8); Alkaline Phosphatase 48 U/L (40-110); Anion Gap 15 mmol/L (10-20); BUN (Urea Nitrogen) 22 mg/dL (8.4-25.7); Bilirubin, Total 0.7 mg/dL (0.2-1.2); Calc. Creatinine Clearance 0 mL/min (70-130); Calcium 9.4 mg/dL (7.8-10.44); Carbon Dioxide 29 mmol/L (23-31); Chloride 105 mmol/L (98-107); Estimated GFR 53; Globulin 2.1 g/dL (2.4-3.5); Glucose 70 mg/dL (83-110); Potassium 4.3 mmol/L (3.5-5.1); Protein, Total 6.6 g/dL (5.8-8.1); Sodium 145 mmol/L (136-145)
== END 2023-09-13 09:22 | disposition home or self-care (01) ==
LOC: LABBT 09:21
PROVIDERS: ATTEND Internal Medicine Cardiovascular Disease
DX: Z01.812 Encounter for preprocedural laboratory examination (principal)
CPT/HCPCS: 80053; 85025

== ENCOUNTER 2023-09-16 05:49 | Day surgery (SDC) | payer MEDICARE, BC ==
[2023-09-13 09:48] VITALS: BMI 28.1
[2023-09-16] MEDS ORDERED: Heparin 10,000 UNITS/ 10 ML VIAL ONE (11:51)
[2023-09-16] MEDS ORDERED: Midazolam HCl 2 mg/2 ml Vial ONE (12:20)
[2023-09-16] MEDS ORDERED: fentaNYL 50 mcg/mL 1 mL Vial ONE (12:20)
== END 2023-09-16 18:11 | disposition home or self-care (01) ==
LOC: SDC 05:49
PROVIDERS: ATTEND Internal Medicine Cardiovascular Disease
PROC: 4A023N7 Measurement of Cardiac Sampling and Pressure, Left Heart, Percutaneous Approach (ICD-10-PCS; principal; 2023-09-16)
PROC: B2010ZZ Plain Radiography of Multiple Coronary Arteries using High Osmolar Contrast (ICD-10-PCS; 2023-09-16)
PROC: B2050ZZ Plain Radiography of Left Heart using High Osmolar Contrast (ICD-10-PCS; 2023-09-16)
DX: I35.0 Nonrheumatic aortic (valve) stenosis (principal); I25.10 Atherosclerotic heart disease of native coronary artery without angina pectoris; E78.5 Hyperlipidemia, unspecified; M19.90 Unspecified osteoarthritis, unspecified site; N40.0 Benign prostatic hyperplasia without lower urinary tract symptoms; R00.1 Bradycardia, unspecified; I48.20 Chronic atrial fibrillation, unspecified; G47.33 Obstructive sleep apnea (adult) (pediatric); Z90.49 Acquired absence of other specified parts of digestive tract; Z98.49 Cataract extraction status, unspecified eye; Z87.891 Personal history of nicotine dependence; Z88.8 Allergy status to other drugs, medicaments and biological substances; Z79.899 Other long term (current) drug therapy
CPT/HCPCS: 93460; C1751 ×2; C1760; C1769 ×8; C1894 ×2; J3010; 99152; 99153; J1644; J2250